=== PATIENT | male | born 1980 | race Two or more races ===

== ENCOUNTER 2020-11-23 07:16 | Outpatient (CLI) | payer OTHER | END 2020-11-23 07:30 | disposition home or self-care (01) | LOC: SONOGRAMA 07:16 → MAMO-SONO 07:30 → SONOGRAMA 07:30 | PROVIDERS: ATTEND Specialist | DX: R97.20 Elevated prostate specific antigen [PSA] (principal); N40.2 Nodular prostate without lower urinary tract symptoms ==

== ENCOUNTER 2020-12-10 08:21 | Outpatient (CLI) | payer OTHER | END 2020-12-10 08:22 | disposition home or self-care (01) | LOC: SONOGRAMA 08:21 | PROVIDERS: ATTEND General Practice | DX: R10.84 Generalized abdominal pain (principal); R94.5 Abnormal results of liver function studies; K76.0 Fatty (change of) liver, not elsewhere classified ==